=== PATIENT | female | born 1935 | race Caucasian/White ===

== ENCOUNTER → 2020-09-30 | Day surgery (SDC) | payer MEDICARE, OTHER ==
[~2020-09-30] MED LIST: ACETAMINOPHEN325 M1 PO; ASPIRIN EC81 MG PO; ATORVASTATIN CA20 MG PO; BREO ELLIPTA 11 EACH INH; CETIRIZINE HCL10 M1 PO; COLACE100 MG PO; DICYCLOMINE HCL20 MG PO; FLONASE ALLERG9.9 ML INH; FUROSEMIDE20 MG PO; GENTEAL TEARS 015 ML OU; GUAIFENESIN AC473 ML PO; IMODIUM A-1 MG/7.5 M PO; ISOSORBIDE MONO30 MG PO; LACTULOSE20 GM/30 M PO; LIDOCAINE HCL 2% LOCAL INJ 5 ML SDV VIAL INJ ONE; LOSARTAN POTAS100 MG PO; MAGNESIUM CITR100 GM PO; MELATONIN3 MG PO; MILK OF MA2400 MG/10 PO; MIRALAX17 GM PO; MYLANTA MAXIMUM10 ML PO; NEURONTIN400 MG PO; OXYBUTYNIN CHLOR5 MG PO; PIOGLITAZONE HC45 MG PO; POVIDONE IODINE 0.05% 0.05 % ML PO ONE; PROPOFOL IV EMULSION 10 MG/ML 20 ML VIAL ONE; PROTONIX20 MG PO; PROVENTIL HFA6.7 GM INH; ROBITUSSIN COU118 M4 PO; TOPROL XL50 MG PO; ULTRAM50 MG PO; VOLTAREN ARTHRI20 GM TOP
[2020-09-30 12:45] VITALS: BP 130/68
== END | disposition home or self-care (01) ==
LOC: ENDO 09:32
PROVIDERS: ATTEND Internal Medicine Gastroenterology
DX: K29.00 Acute gastritis without bleeding (principal); K29.50 Unspecified chronic gastritis without bleeding; K21.00 Gastro-esophageal reflux disease with esophagitis, without bleeding; K44.9 Diaphragmatic hernia without obstruction or gangrene; K57.30 Diverticulosis of large intestine without perforation or abscess without bleeding; K58.9 Irritable bowel syndrome, unspecified; Z71.3 Dietary counseling and surveillance; K42.9 Umbilical hernia without obstruction or gangrene; I10 Essential (primary) hypertension; E11.9 Type 2 diabetes mellitus without complications; E66.01 Morbid (severe) obesity due to excess calories; I25.10 Atherosclerotic heart disease of native coronary artery without angina pectoris; M06.9 Rheumatoid arthritis, unspecified; M19.012 Primary osteoarthritis, left shoulder; M19.011 Primary osteoarthritis, right shoulder; F03.90 Unspecified dementia, unspecified severity, without behavioral disturbance, psychotic disturbance, mood disturbance, and anxiety; J45.909 Unspecified asthma, uncomplicated; F32.9 Major depressive disorder, single episode, unspecified; F41.9 Anxiety disorder, unspecified; Z88.1 Allergy status to other antibiotic agents; Z88.0 Allergy status to penicillin; Z88.2 Allergy status to sulfonamides; Z99.81 Dependence on supplemental oxygen; Z79.82 Long term (current) use of aspirin; Z79.84 Long term (current) use of oral hypoglycemic drugs; Z68.41 Body mass index [BMI] 40.0-44.9, adult; Z86.73 Personal history of transient ischemic attack (TIA), and cerebral infarction without residual deficits
CPT/HCPCS: 36415; 43239; 43450; 82948; 93005; J2001; J2704

== ENCOUNTER 2021-01-02 13:55 | Inpatient (IN) | payer MEDICARE, OTHER ==
[~2021-01-02] VITALS: Ht 152.4 cm; Wt 98.4 kg
[~2021-01-02 13:55] MED LIST changes: -LIDOCAINE HCL 2% LOCAL INJ 5 ML SDV VIAL INJ ONE; -POVIDONE IODINE 0.05% 0.05 % ML PO ONE; -PROPOFOL IV EMULSION 10 MG/ML 20 ML VIAL ONE
[2021-01-02 14:53] LABS: BASOPHILS % 0.4 % (0.0-1.0); EOSINOPHILS # (AUTO) 0.2 (0.0-0.4); EOSINOPHILS % 3.3 % (0.0-6.0); HEMATOCRIT 31.4 % (34.2-44.1); HEMOGLOBIN 9.7 g/dL (12.0-16.0); LYMPHOCYTES # (AUTO) 1.7 (1.0-3.2); LYMPHOCYTES % 25.2 % (18.0-39.1); MEAN CORPUSCULAR HEMOGLOBIN 29.8 pg (28-32); MEAN CORPUSCULAR HGB CONC 30.9 g/dL (31-35); MEAN CORPUSCULAR VOLUME 96.3 fL (81-99); MONOCYTES # (AUTO) 0.6 (0.2-0.8); MONOCYTES % 9.5 % (4.4-11.3); NEUTROPHILS # (AUTO) 4.1 (2.1-6.9); NEUTROPHILS % 61.3 % (38.7-80.0); PLATELET COUNT 212 x10e3/uL (140-360); RED BLOOD COUNT 3.26 x10e6/uL (3.6-5.1); RED CELL DISTRIBUTION WIDTH 13.2 % (11.7-14.4)
[2021-01-02 15:10] LABS: ALBUMIN/GLOBULIN RATIO 0.9 (0.8-2.0); ANION GAP 15.2 mmol/L (8-16); CALCIUM 8.8 mg/dL (8.4-10.2); CREATININE, SERUM 0.67 mg/dL (0.57-1.11); POTASSIUM 4.2 mmol/L (3.5-5.1)
[2021-01-02] MEDS ORDERED: ACETAMINOPHEN 325 MG TAB PO ONE (18:30)
[2021-01-02] MEDS ORDERED: CEFTRIAXONE 1 GM in SODIUM CHLORIDE 0.9% 50ML 50 ML IV SCH (20:00)
[2021-01-02] MEDS ORDERED: CEFTRIAXONE 1 GM VIAL ONE (20:27)
[2021-01-02] MEDS ORDERED: SODIUM CHLORIDE 0.9% 250ML 250 ML ONE (20:28)
[2021-01-02 23:51] VITALS: BP 105/60
[2021-01-02 23:55] VITALS: BP 105/60
[2021-01-03] VITALS (8 sets, daily range): BP systolic 105–118; BP diastolic 49–60
[2021-01-03] MEDS ORDERED: DEXTROSE 50% SYRINGE 50 ML IV PRN (11:30)
[2021-01-03] MEDS: DEXTROSE 5%/0.45% SOD CHL 1,000 ML IV SCH (11:30)
[2021-01-03] MEDS: INSULIN LISPRO 100 UNIT/1 ML 3ML VIAL SQ SCH ×3 (11:30→20:47)
[2021-01-03] MEDS ORDERED: POLYETHYLENE GLYCOL 3350 17 GM PACK PO PRN (16:45)
[2021-01-03] MEDS ORDERED: TRAMADOL HCL 50 MG TAB PO PRN (16:45)
[2021-01-03] MEDS ORDERED: LACTULOSE SYRUP 20 GM/30 ML UDC PO PRN (16:45)
[2021-01-03] MEDS ORDERED: DOCUSATE SODIUM 100 MG CAP PO PRN (16:45)
[2021-01-03] MEDS: ENOXAPARIN SOD INJ 40 MG/0.4 ML SYR SC SCH (17:59)
[2021-01-03] MEDS: LEVOFLOXACIN 750MG/D5W 150ML 150 ML IV SCH (17:59)
[2021-01-03] MEDS: ATORVASTATIN 20 MG TAB PO SCH (20:47)
[2021-01-03] MEDS: GABAPENTIN 400 MG CAP PO SCH (20:47)
[2021-01-03] MEDS: ALBUTEROL/IPRATROPIUM 3 ML NEB NEB SCH (20:48)
[2021-01-03] MEDS ORDERED: HYDROMORPHONE 1MG/1ML INJ IV PRN (23:45)
[2021-01-04] VITALS (9 sets, daily range): BP systolic 107–126; BP diastolic 49–88
[2021-01-04] MEDS: ALBUTEROL/IPRATROPIUM 3 ML NEB NEB SCH ×4 (03:30→19:30)
[2021-01-04] MEDS: DEXTROSE 5%/0.45% SOD CHL 1,000 ML IV SCH (06:09)
[2021-01-04 06:22] LABS: BASOPHILS % 0.5 % (0.0-1.0); EOSINOPHILS # (AUTO) 0.2 (0.0-0.4); EOSINOPHILS % 2.3 % (0.0-6.0); HEMATOCRIT 31.7 % (34.2-44.1); HEMOGLOBIN 9.7 g/dL (12.0-16.0); LYMPHOCYTES % 25.5 % (18.0-39.1); MEAN CORPUSCULAR HEMOGLOBIN 29.8 pg (28-32); MEAN CORPUSCULAR HGB CONC 30.6 g/dL (31-35); MEAN CORPUSCULAR VOLUME 97.5 fL (81-99); MONOCYTES # (AUTO) 0.9 (0.2-0.8); NEUTROPHILS # (AUTO) 4.5 (2.1-6.9); NEUTROPHILS % 59.2 % (38.7-80.0); PLATELET COUNT 179 x10e3/uL (140-360); RED BLOOD COUNT 3.25 x10e6/uL (3.6-5.1); RED CELL DISTRIBUTION WIDTH 13.2 % (11.7-14.4)
[2021-01-04 07:04] LABS: ALBUMIN 2.8 g/dL (3.5-5.0); ALBUMIN/GLOBULIN RATIO 0.8 (0.8-2.0); ANION GAP 13.1 mmol/L (8-16); CALCIUM 8.3 mg/dL (8.4-10.2); CHOL/HDL RATIO 4.1 (3.0-3.6); CREATININE, SERUM 0.63 mg/dL (0.57-1.11); POTASSIUM 4.1 mmol/L (3.5-5.1)
[2021-01-04] MEDS: INSULIN LISPRO 100 UNIT/1 ML 3ML VIAL SQ SCH ×4 (07:29→21:00)
[2021-01-04 07:30] LABS: MAGNESIUM 1.8 MG/DL (1.3-2.1)
[2021-01-04 07:51] LABS: THYROID STIMULATING HORMONE 2.557 uIU/mL (0.350-4.940)
[2021-01-04 07:56] LABS: % IRON SATURATION 21 % (15-50); IRON 59 ug/dL (50-170); TOTAL IRON BINDING CAPACITY 284 ug/dL (261-478); TRANSFERRIN 203 mg/dL (180-382)
[2021-01-04] MEDS: PIOGLITAZONE HCL 15 MG TAB PO SCH (08:32)
[2021-01-04] MEDS: GABAPENTIN 400 MG CAP PO SCH ×3 (08:32→20:39)
[2021-01-04] MEDS: ASPIRIN 81 MG ENTERIC COATED PO SCH (08:32)
[2021-01-04] MEDS: DICLOFENAC SOD 1% GEL 100 GM TUBE TP SCH (08:32)
[2021-01-04] MEDS: PANTOPRAZOLE SOD 40 MG TABEC PO SCH (08:32)
[2021-01-04] MEDS: ENOXAPARIN SOD INJ 40 MG/0.4 ML SYR SC SCH (17:39)
[2021-01-04] MEDS: LEVOFLOXACIN 750MG/D5W 150ML 150 ML IV SCH (17:39)
[2021-01-04] MEDS ORDERED: IOPAMIDOL 370 MG/ML 200 ML INFUS..BTL INJ ONE (18:56)
[2021-01-04] MEDS ORDERED: SODIUM CHLORIDE 0.9% 50ML 50 ML ONE (18:56)
[2021-01-04] MEDS ORDERED: KETOROLAC TROMETHAMINE 30 MG/ML VIAL IV PRN (19:45)
[2021-01-04] MEDS: KETOROLAC TROMETHAMINE 30 MG/ML VIAL IV PRN (20:38)
[2021-01-04] MEDS: ATORVASTATIN 20 MG TAB PO SCH (20:38)
[2021-01-05] VITALS (10 sets, daily range): BP systolic 102–130; BP diastolic 53–90
[2021-01-05] MEDS: ALBUTEROL/IPRATROPIUM 3 ML NEB NEB SCH ×4 (02:51→19:50)
[2021-01-05 06:21] LABS: BASOPHILS % 0.3 % (0.0-1.0); EOSINOPHILS # (AUTO) 0.2 (0.0-0.4); EOSINOPHILS % 2.8 % (0.0-6.0); HEMATOCRIT 29.1 % (34.2-44.1); HEMOGLOBIN 9.2 g/dL (12.0-16.0); LYMPHOCYTES # (AUTO) 1.5 (1.0-3.2); LYMPHOCYTES % 26.6 % (18.0-39.1); MEAN CORPUSCULAR HEMOGLOBIN 29.8 pg (28-32); MEAN CORPUSCULAR HGB CONC 31.6 g/dL (31-35); MEAN CORPUSCULAR VOLUME 94.2 fL (81-99); MONOCYTES # (AUTO) 0.7 (0.2-0.8); MONOCYTES % 11.6 % (4.4-11.3); NEUTROPHILS # (AUTO) 3.4 (2.1-6.9); NEUTROPHILS % 58.4 % (38.7-80.0); PLATELET COUNT 190 x10e3/uL (140-360); RED BLOOD COUNT 3.09 x10e6/uL (3.6-5.1); RED CELL DISTRIBUTION WIDTH 13.5 % (11.7-14.4)
[2021-01-05] MEDS: DEXTROSE 5%/0.45% SOD CHL 1,000 ML IV SCH (06:42)
[2021-01-05 06:48] LABS: ALBUMIN 2.8 g/dL (3.5-5.0); ANION GAP 13.8 mmol/L (8-16); CALCIUM 8.5 mg/dL (8.4-10.2); CREATININE, SERUM 0.61 mg/dL (0.57-1.11); POTASSIUM 3.8 mmol/L (3.5-5.1)
[2021-01-05] MEDS: INSULIN LISPRO 100 UNIT/1 ML 3ML VIAL SQ SCH ×4 (07:30→20:19)
[2021-01-05] MEDS: PIOGLITAZONE HCL 15 MG TAB PO SCH (07:41)
[2021-01-05] MEDS: GABAPENTIN 400 MG CAP PO SCH ×3 (07:41→20:18)
[2021-01-05] MEDS: PANTOPRAZOLE SOD 40 MG TABEC PO SCH (07:41)
[2021-01-05] MEDS: ASPIRIN 81 MG ENTERIC COATED PO SCH (07:41)
[2021-01-05] MEDS: DICLOFENAC SOD 1% GEL 100 GM TUBE TP SCH (07:42)
[2021-01-05] MEDS: KETOROLAC TROMETHAMINE 30 MG/ML VIAL IV PRN ×2 (16:00→21:58)
[2021-01-05] MEDS: ENOXAPARIN SOD INJ 40 MG/0.4 ML SYR SC SCH (17:15)
[2021-01-05] MEDS: LEVOFLOXACIN 750MG/D5W 150ML 150 ML IV SCH (17:15)
[2021-01-05] MEDS: ATORVASTATIN 20 MG TAB PO SCH (20:18)
[2021-01-06] VITALS (9 sets, daily range): BP systolic 113–149; BP diastolic 58–93
[2021-01-06] MEDS: DEXTROSE 5%/0.45% SOD CHL 1,000 ML IV SCH ×2 (02:58→20:12)
[2021-01-06] MEDS: ALBUTEROL/IPRATROPIUM 3 ML NEB NEB SCH ×4 (03:08→19:40)
[2021-01-06] MEDS: INSULIN LISPRO 100 UNIT/1 ML 3ML VIAL SQ SCH ×4 (07:30→19:58)
[2021-01-06] MEDS: PANTOPRAZOLE SOD 40 MG TABEC PO SCH (09:00)
[2021-01-06] MEDS: GABAPENTIN 400 MG CAP PO SCH ×3 (09:08→20:12)
[2021-01-06] MEDS: PIOGLITAZONE HCL 15 MG TAB PO SCH (09:08)
[2021-01-06] MEDS: DICLOFENAC SOD 1% GEL 100 GM TUBE TP SCH (09:08)
[2021-01-06] MEDS: ASPIRIN 81 MG ENTERIC COATED PO SCH (09:08)
[2021-01-06] MEDS: LEVOFLOXACIN 750MG/D5W 150ML 150 ML IV SCH (16:08)
[2021-01-06] MEDS: ENOXAPARIN SOD INJ 40 MG/0.4 ML SYR SC SCH (16:08)
[2021-01-06] MEDS: ATORVASTATIN 20 MG TAB PO SCH (20:12)
[2021-01-07] VITALS (9 sets, daily range): BP systolic 98–126; BP diastolic 51–95
[2021-01-07] MEDS: ALBUTEROL/IPRATROPIUM 3 ML NEB NEB SCH ×4 (03:00→19:00)
[2021-01-07] MEDS: ASPIRIN 81 MG ENTERIC COATED PO SCH (07:50)
[2021-01-07] MEDS: PANTOPRAZOLE SOD 40 MG TABEC PO SCH (07:50)
[2021-01-07] MEDS: GABAPENTIN 400 MG CAP PO SCH ×3 (07:50→20:05)
[2021-01-07] MEDS: PIOGLITAZONE HCL 15 MG TAB PO SCH (07:50)
[2021-01-07] MEDS: DICLOFENAC SOD 1% GEL 100 GM TUBE TP SCH (07:50)
[2021-01-07] MEDS: INSULIN LISPRO 100 UNIT/1 ML 3ML VIAL SQ SCH ×4 (07:53→19:53)
[2021-01-07] MEDS: DEXTROSE 5%/0.45% SOD CHL 1,000 ML IV SCH (14:37)
[2021-01-07] MEDS: LEVOFLOXACIN 750MG/D5W 150ML 150 ML IV SCH (16:21)
[2021-01-07] MEDS: ENOXAPARIN SOD INJ 40 MG/0.4 ML SYR SC SCH (16:21)
[2021-01-07] MEDS: ATORVASTATIN 20 MG TAB PO SCH (20:05)
[2021-01-08] VITALS (9 sets, daily range): BP systolic 92–123; BP diastolic 37–74
[2021-01-08] MEDS ORDERED: MAGNESIUM HYDROXIDE 30 ML UDC PO PRN (00:15)
[2021-01-08] MEDS ORDERED: FLUTICASONE PROPIONATE NASAL SPRAY NS PRN (00:15)
[2021-01-08] MEDS ORDERED: MAGNESIUM/ALUMINUM/SIMETHICONE 30 ML UDC PO PRN (00:15)
[2021-01-08] MEDS ORDERED: DICYCLOMINE HCL 20 MG TAB PO PRN (00:15)
[2021-01-08] MEDS: ALBUTEROL/IPRATROPIUM 3 ML NEB NEB SCH ×4 (02:50→19:00)
[2021-01-08 05:44] LABS: BASOPHILS % 0.5 % (0.0-1.0); EOSINOPHILS # (AUTO) 0.3 (0.0-0.4); EOSINOPHILS % 4.8 % (0.0-6.0); HEMATOCRIT 29.6 % (34.2-44.1); HEMOGLOBIN 9.2 g/dL (12.0-16.0); LYMPHOCYTES # (AUTO) 1.7 (1.0-3.2); LYMPHOCYTES % 29.3 % (18.0-39.1); MEAN CORPUSCULAR HEMOGLOBIN 30.1 pg (28-32); MEAN CORPUSCULAR HGB CONC 31.1 g/dL (31-35); MEAN CORPUSCULAR VOLUME 96.7 fL (81-99); MONOCYTES # (AUTO) 0.6 (0.2-0.8); MONOCYTES % 9.9 % (4.4-11.3); NEUTROPHILS # (AUTO) 3.2 (2.1-6.9); NEUTROPHILS % 55.3 % (38.7-80.0); PLATELET COUNT 200 x10e3/uL (140-360); RED BLOOD COUNT 3.06 x10e6/uL (3.6-5.1)
[2021-01-08] MEDS: ALBUTEROL SULFATE HFA 8GM INHALATION AEROSOL INH SCH ×3 (06:00→18:00)
[2021-01-08 06:12] LABS: ALBUMIN 2.6 g/dL (3.5-5.0); ANION GAP 10.5 mmol/L (8-16); CREATININE, SERUM 0.63 mg/dL (0.57-1.11); MAGNESIUM 1.6 MG/DL (1.3-2.1); PHOSPHORUS 3.5 MG/DL (2.3-4.7); POTASSIUM 3.5 mmol/L (3.5-5.1)
[2021-01-08] MEDS: LOSARTAN POTASSIUM 100 MG TAB PO SCH (07:46)
[2021-01-08] MEDS: PIOGLITAZONE HCL 15 MG TAB PO SCH (07:46)
[2021-01-08] MEDS: LORATADINE 10 MG TAB PO SCH (07:46)
[2021-01-08] MEDS: ASPIRIN 81 MG ENTERIC COATED PO SCH (07:46)
[2021-01-08] MEDS: OXYBUTYNIN CHLORIDE 5 MG TAB PO SCH (07:46)
[2021-01-08] MEDS: METOPROLOL SUCCINATE 50 MG TAB XL PO SCH (07:47)
[2021-01-08] MEDS: ISOSORBIDE MONONITRATE 30 MG TAB CR PO SCH (07:47)
[2021-01-08] MEDS: GABAPENTIN 400 MG CAP PO SCH ×3 (07:47→20:36)
[2021-01-08] MEDS: FUROSEMIDE 20 MG TAB PO SCH (07:47)
[2021-01-08] MEDS: INSULIN LISPRO 100 UNIT/1 ML 3ML VIAL SQ SCH ×4 (07:50→20:15)
[2021-01-08] MEDS: DICLOFENAC SOD 1% GEL 100 GM TUBE TP SCH (07:54)
[2021-01-08] MEDS: ARTIFICIAL TEARS (OPTH) 15 ML BTL OU SCH ×3 (07:55→20:30)
[2021-01-08] MEDS: NON-FORMULARY MEDICATION (Fluticasone/Vilanterol (Breo Ellipta 100-25 Mcg INH) 1 INH) INH SCH (07:56)
[2021-01-08] MEDS ORDERED: [UNRECOGNIZED DRUG - OTHER] OU SCH (09:00)
[2021-01-08] MEDS ORDERED: DEXTRAN OU SCH (09:00)
[2021-01-08] MEDS ORDERED: GLYCERIN OU SCH (09:00)
[2021-01-08] MEDS ORDERED: HYPROMELLOSE OU SCH (09:00)
[2021-01-08] MEDS ORDERED: NON-FORMULARY MEDICATION (Cetirizine Hcl 10 MG) PO SCH (09:00)
[2021-01-08] MEDS: DEXTROSE 5%/0.45% SOD CHL 1,000 ML IV SCH (11:43)
[2021-01-08] MEDS: LEVOFLOXACIN 750MG/D5W 150ML 150 ML IV SCH (16:24)
[2021-01-08] MEDS: ENOXAPARIN SOD INJ 40 MG/0.4 ML SYR SC SCH (16:24)
[2021-01-08] MEDS ORDERED: MAGNESIUM SULFATE 2GM/50ML 50 ML IV ONE (19:30)
[2021-01-08] MEDS: ATORVASTATIN 20 MG TAB PO SCH (20:30)
[2021-01-08] MEDS: MELATONIN 5 MG TABLET PO SCH (20:36)
[2021-01-09] VITALS (9 sets, daily range): BP systolic 105–128; BP diastolic 53–67
[2021-01-09] MEDS: ALBUTEROL/IPRATROPIUM 3 ML NEB NEB SCH ×4 (01:00→19:11)
[2021-01-09] MEDS: ALBUTEROL SULFATE HFA 8GM INHALATION AEROSOL INH SCH ×5 (06:00→20:18)
[2021-01-09] MEDS: INSULIN LISPRO 100 UNIT/1 ML 3ML VIAL SQ SCH ×4 (07:30→20:18)
[2021-01-09] MEDS: ARTIFICIAL TEARS (OPTH) 15 ML BTL OU SCH ×3 (08:21→20:10)
[2021-01-09] MEDS: NON-FORMULARY MEDICATION (Fluticasone/Vilanterol (Breo Ellipta 100-25 Mcg INH) 1 INH) INH SCH (08:21)
[2021-01-09] MEDS: PIOGLITAZONE HCL 15 MG TAB PO SCH (08:24)
[2021-01-09] MEDS: ASPIRIN 81 MG ENTERIC COATED PO SCH (08:24)
[2021-01-09] MEDS: LORATADINE 10 MG TAB PO SCH (08:24)
[2021-01-09] MEDS: DICLOFENAC SOD 1% GEL 100 GM TUBE TP SCH (08:25)
[2021-01-09] MEDS: FUROSEMIDE 20 MG TAB PO SCH (08:25)
[2021-01-09] MEDS: OXYBUTYNIN CHLORIDE 5 MG TAB PO SCH (08:25)
[2021-01-09] MEDS: GABAPENTIN 400 MG CAP PO SCH ×3 (08:25→20:10)
[2021-01-09] MEDS: LOSARTAN POTASSIUM 100 MG TAB PO SCH (08:25)
[2021-01-09] MEDS: METOPROLOL SUCCINATE 50 MG TAB XL PO SCH (08:26)
[2021-01-09] MEDS: ISOSORBIDE MONONITRATE 30 MG TAB CR PO SCH (08:26)
[2021-01-09] MEDS: ENOXAPARIN SOD INJ 40 MG/0.4 ML SYR SC SCH (17:09)
[2021-01-09] MEDS: LEVOFLOXACIN 750MG/D5W 150ML 150 ML IV SCH (17:09)
[2021-01-09] MEDS: MELATONIN 5 MG TABLET PO SCH (20:10)
[2021-01-09] MEDS: ATORVASTATIN 20 MG TAB PO SCH (20:10)
[2021-01-10] VITALS (9 sets, daily range): BP systolic 85–128; BP diastolic 34–71
[2021-01-10] MEDS: ALBUTEROL SULFATE HFA 8GM INHALATION AEROSOL INH SCH ×2 (06:00→19:30)
[2021-01-10] MEDS: INSULIN LISPRO 100 UNIT/1 ML 3ML VIAL SQ SCH ×4 (07:30→20:28)
[2021-01-10] MEDS: ALBUTEROL/IPRATROPIUM 3 ML NEB NEB SCH ×4 (07:39→19:30)
[2021-01-10] MEDS ORDERED: DICLOFENAC SOD 1% GEL 100 GM TUBE TP SCH (09:00)
[2021-01-10] MEDS: ISOSORBIDE MONONITRATE 30 MG TAB CR PO SCH (09:00)
[2021-01-10] MEDS: NON-FORMULARY MEDICATION (Fluticasone/Vilanterol (Breo Ellipta 100-25 Mcg INH) 1 INH) INH SCH (09:00)
[2021-01-10] MEDS: METOPROLOL SUCCINATE 50 MG TAB XL PO SCH (09:00)
[2021-01-10] MEDS: LOSARTAN POTASSIUM 100 MG TAB PO SCH (09:00)
[2021-01-10] MEDS: ARTIFICIAL TEARS (OPTH) 15 ML BTL OU SCH ×3 (09:02→20:23)
[2021-01-10] MEDS: LORATADINE 10 MG TAB PO SCH (09:16)
[2021-01-10] MEDS: OXYBUTYNIN CHLORIDE 5 MG TAB PO SCH (09:16)
[2021-01-10] MEDS: PIOGLITAZONE HCL 15 MG TAB PO SCH (09:16)
[2021-01-10] MEDS: GABAPENTIN 400 MG CAP PO SCH ×3 (09:16→20:23)
[2021-01-10] MEDS: ASPIRIN 81 MG ENTERIC COATED PO SCH (09:16)
[2021-01-10] MEDS: FUROSEMIDE 20 MG TAB PO SCH (09:20)
[2021-01-10] MEDS: DICLOFENAC SOD 1% GEL 100 GM TUBE TP SCH (16:06)
[2021-01-10] MEDS: LEVOFLOXACIN 750MG/D5W 150ML 150 ML IV SCH (18:00)
[2021-01-10] MEDS: MELATONIN 5 MG TABLET PO SCH (20:23)
[2021-01-10] MEDS: ATORVASTATIN 20 MG TAB PO SCH (20:23)
[2021-01-10] MEDS: GUAIFENESIN/DEXTROMETHORPHAN 237 ML SYRUP PO PRN (20:29)
[2021-01-11] VITALS (7 sets, daily range): BP systolic 108–131; BP diastolic 41–58
[2021-01-11] MEDS: ALBUTEROL/IPRATROPIUM 3 ML NEB NEB SCH ×3 (00:15→13:30)
[2021-01-11] MEDS ORDERED: ACETAMIN/BUTALBITAL/CAFFEINE TAB PO PRN (00:15)
[2021-01-11] MEDS ORDERED: ACETAMINOPHEN 325 MG TAB PO PRN (00:15)
[2021-01-11] MEDS: ALBUTEROL SULFATE HFA 8GM INHALATION AEROSOL INH SCH (00:15)
[2021-01-11] MEDS: INSULIN LISPRO 100 UNIT/1 ML 3ML VIAL SQ SCH ×3 (08:30→15:25)
[2021-01-11] MEDS: NON-FORMULARY MEDICATION (Fluticasone/Vilanterol (Breo Ellipta 100-25 Mcg INH) 1 INH) INH SCH (09:00)
[2021-01-11] MEDS: ARTIFICIAL TEARS (OPTH) 15 ML BTL OU SCH ×2 (09:06→14:46)
[2021-01-11] MEDS: ASPIRIN 81 MG ENTERIC COATED PO SCH (09:06)
[2021-01-11] MEDS: FUROSEMIDE 20 MG TAB PO SCH (09:06)
[2021-01-11] MEDS: PIOGLITAZONE HCL 15 MG TAB PO SCH (09:06)
[2021-01-11] MEDS: OXYBUTYNIN CHLORIDE 5 MG TAB PO SCH (09:07)
[2021-01-11] MEDS: LOSARTAN POTASSIUM 100 MG TAB PO SCH (09:07)
[2021-01-11] MEDS: GABAPENTIN 400 MG CAP PO SCH ×2 (09:07→14:46)
[2021-01-11] MEDS: LORATADINE 10 MG TAB PO SCH (09:07)
[2021-01-11] MEDS: DICLOFENAC SOD 1% GEL 100 GM TUBE TP SCH (09:08)
[2021-01-11] MEDS: METOPROLOL SUCCINATE 50 MG TAB XL PO SCH (09:08)
[2021-01-11] MEDS: GUAIFENESIN/DEXTROMETHORPHAN 237 ML SYRUP PO PRN (09:14)
[2021-01-11] MEDS: ISOSORBIDE MONONITRATE 30 MG TAB CR PO SCH (09:16)
[2021-01-11] MEDS: LEVOFLOXACIN 750MG/D5W 150ML 150 ML IV SCH (18:00)
== END 2021-01-11 20:15 | DRG 871 ==
LOC: ER 14:02 → ERHOLD 20:27 → MED/SURG3 22:19
PROVIDERS: ADMIT Internal Medicine; ATTEND Internal Medicine
PROC: 0CJY8ZZ Inspection of Mouth and Throat, Via Natural or Artificial Opening Endoscopic (ICD-10-PCS; principal; 2021-01-11)
DX: A41.9 Sepsis, unspecified organism (principal); J18.9 Pneumonia, unspecified organism; I50.23 Acute on chronic systolic (congestive) heart failure; J69.0 Pneumonitis due to inhalation of food and vomit; J84.9 Interstitial pulmonary disease, unspecified; Z68.41 Body mass index [BMI] 40.0-44.9, adult; I11.0 Hypertensive heart disease with heart failure; I25.10 Atherosclerotic heart disease of native coronary artery without angina pectoris; E11.9 Type 2 diabetes mellitus without complications; R53.81 Other malaise; D63.8 Anemia in other chronic diseases classified elsewhere; R13.10 Dysphagia, unspecified; R47.1 Dysarthria and anarthria; Z20.822 Contact with and (suspected) exposure to COVID-19; R62.7 Adult failure to thrive; I89.0 Lymphedema, not elsewhere classified; D50.0 Iron deficiency anemia secondary to blood loss (chronic); R13.12 Dysphagia, oropharyngeal phase; L89.151 Pressure ulcer of sacral region, stage 1; I87.8 Other specified disorders of veins; E83.42 Hypomagnesemia; R09.89 Other specified symptoms and signs involving the circulatory and respiratory systems; K21.9 Gastro-esophageal reflux disease without esophagitis; Z88.3 Allergy status to other anti-infective agents; Z88.2 Allergy status to sulfonamides; Z95.5 Presence of coronary angioplasty implant and graft; Z88.1 Allergy status to other antibiotic agents; Z88.0 Allergy status to penicillin; Z88.8 Allergy status to other drugs, medicaments and biological substances; Z79.82 Long term (current) use of aspirin
CPT/HCPCS: 36415; 70490; 71045; 71260; 74018; 74230; 80053; 80061; 82270; 82607; 82746; 82948; 83036; 83540; 83735; 83880; 84100; 84443; 84466; 84484; 85025; 93005; 93306; 93970; 96360; 97139; 99251; 99285; J0456; J0696; J1170; J1650; J1885; J3475; J7050; Q9967; U0002

== ENCOUNTER 2021-11-30 15:37 | Emergency (ER) | payer MEDICARE, OTHER ==
[~2021-11-30] VITALS: Ht 152.4 cm; Wt 98.4 kg
[2021-11-30 16:57] LABS: BASOPHILS % 0.4 % (0.0-1.0); EOSINOPHILS # (AUTO) 0.1 (0.0-0.4); EOSINOPHILS % 1.8 % (0.0-6.0); HEMATOCRIT 32.3 % (34.2-44.1); HEMOGLOBIN 10.1 g/dL (12.0-16.0); LYMPHOCYTES # (AUTO) 1.5 (1.0-3.2); LYMPHOCYTES % 21.4 % (18.0-39.1); MEAN CORPUSCULAR HEMOGLOBIN 29.4 pg (28-32); MEAN CORPUSCULAR HGB CONC 31.3 g/dL (31-35); MEAN CORPUSCULAR VOLUME 93.9 fL (81-99); MONOCYTES # (AUTO) 0.5 (0.2-0.8); MONOCYTES % 6.9 % (4.4-11.3); NEUTROPHILS # (AUTO) 4.9 (2.1-6.9); NEUTROPHILS % 69.1 % (38.7-80.0); PLATELET COUNT 338 x10e3/uL (140-360); RED BLOOD COUNT 3.44 x10e6/uL (3.6-5.1); RED CELL DISTRIBUTION WIDTH 14.5 % (11.7-14.4)
[2021-11-30 16:58] LABS: CLARITY,URINE CLEAR (CLEAR); COLOR,URINE YELLOW (YELLOW)
[2021-11-30 16:59] LABS: KETONES,URINE NEGATIVE (NEGATIVE); LEUKOCYTE ESTERASE ,URINE NEGATIVE (NEGATIVE); NITRITE,URINE NEGATIVE (NEGATIVE); PROTEIN,URINE DIPSTICK NEGATIVE (NEGATIVE); URINE UROBILINOGEN 0.2 mg/dL (0.2 - 1)
[2021-11-30 17:09] LABS: EPITHELIAL CELLS,URINE FEW /LPF
[2021-11-30 17:37] LABS: INR 0.91; PROTHROMBIN TIME 13.1 seconds (11.9-14.5)
[2021-11-30 17:38] LABS: PARTIAL THROMBOPLASTIN TIME 34.3 seconds (23.8-35.5)
[2021-11-30 17:43] LABS: ALBUMIN/GLOBULIN RATIO 0.8 (0.8-2.0); ANION GAP 16.1 mmol/L (8-16); CREATININE, SERUM 0.66 mg/dL (0.57-1.11); POTASSIUM 4.1 mmol/L (3.5-5.1)
[2021-11-30 17:50] LABS: CREATINE KINASE MB 2.1 ng/mL (0-5.0)
== END 2021-11-30 20:18 ==
LOC: ER 16:17
DX: R53.1 Weakness (principal); E11.65 Type 2 diabetes mellitus with hyperglycemia; I10 Essential (primary) hypertension; I50.9 Heart failure, unspecified; R94.31 Abnormal electrocardiogram [ECG] [EKG]
CPT/HCPCS: 36415; 71045; 80053; 81001; 82550; 82553; 84484; 85025; 85610; 85730; 93005; 99284